=== PATIENT | male | born 1955 | race Caucasian/White ===

== ENCOUNTER → 2020-08-15 | Outpatient (CLI) | payer OTHER ==
--- NOTE | 2020-08-15 09:28 | KCIC ---
EXAM: Brain MRI without contrast. HISTORY: Tinnitus. TECHNIQUE: Multiplanar, multisequence magnetic resonance imaging of the brain was performed without c ontrast. COMPARISON: None. FINDINGS: There is no restricted diffusion to suggest acute or subacute infarction. There is no susce ptibility effect to suggest hemorrhage. There is no mass effect or midline shift. There is no hydroce phalus. The maxillary sinuses are hypoplastic. There is paranasal sinus mucosal thickening. The masto id air cells are clear. There is evidence of lens surgery. 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 There are normal flow voids within the cerebral vessels. There is no suspicious calvarial lesion. IMPRESSION: No acute intracranial finding. Note is made that a dedicated internal auditory canal protocol MRI with and without contrast may be u seful for further characterization if there is continued concern in this patient with reported tinnit us. Electronically signed by: Heaven Page MD (08/15/2020 9:26 AM) [id number]
== END ==
LOC: KCIC MRI 07:55
PROVIDERS: ATTEND Family Medicine
DX: H93.13 Tinnitus, bilateral (principal); R51.9 Headache, unspecified; R42 Dizziness and giddiness
CPT/HCPCS: 70551